=== PATIENT | male | born 1995 | race American Indian/Alaskan Native ===

== ENCOUNTER 2020-01-24 05:56 | Emergency (ER) | payer SELFPAY ==
[2020-01-24 06:35] VITALS: BP 138/78
--- NOTE | 2020-01-24 08:30 | Emergency Department Report ---
Chief Complaint: Extremity Problem,Nontraumatic Stated Complaint: FEET PAIN Time Seen by Provider: 01/24/20 08:17 - HPI History of Present Illness: Patient is a 24-year-old male presents emergency room with complaints of bilateral feet pain for the last couple of weeks. He states that he has been homeless for several months and has been constantly walking around on his feet. He denies any fall or injury. He denies any drainage from the feet. He states he has been walking outside in the rain. No past medical history. No allergies to medications. He denies any SI or HI. Vitals are stable On exam: There are calluses present to the plantar surface of the bilateral feet, there is a very mild amount of erythema between the webs of the toes, there is a small amount of scaling, no ulcerations, no drainage, no necrosis, no increased warmth, no edema, full range of motion of the bilateral lower extremities, neurovascularly intact Examination appears consistent with mild tinea pedis and calluses Symptoms likely related to overuse and moisture Patient given a new pair of socks to wear Discussed [id number] treatment with patient Discussed the importance of keeping the feet dry Patient was given a list of multiple community resources Patient given a list of shelters Discussed very strict return precautions with patient Medical screening examination performed and there is no threat to life or limb at this time - Exam Vital Signs: Vital Signs 01/24/20 06:29 Temperature 97.5 F L Pulse Rate 74 Respiratory 17 Rate Blood Pressure 138/78 O2 Sat by Pulse 100 Oximetry MSE screening note: Focused history and physical exam performed. ED Disposition for MSE Clinical Impression: Callus of foot Tinea pedis Qualifiers: Laterality: bilateral Qualified Code(s): B35.3 - Tinea pedis Disposition: Z-07 MED SCREENING EXAM-LEFT Is pt being admited?: No Does the pt Need Aspirin: No Condition: Stable Instructions: Athlete's Foot, [id number], Corns and Calluses Additional Instructions: Please use [id number] athlete's foot ointment and powder. Please keep feet dry. Follow-up with a primary care doctor. Return to emergency room immediately for any new or worsening symptoms. Referrals: ESTEFANI RODRIGUEZ MD [Staff Physician] - 2-3 Days [facility] [Provider Group] - 2-3 Days [facility], [LAB/CONTRACT] - 2-3 Days Time of Disposition: 08:30 Print Language: WELSH
== END 2020-01-24 08:48 | disposition left against medical advice (07) ==
LOC: ED 05:56
DX: M79.672 Pain in left foot (principal); M79.671 Pain in right foot; Z53.21 Procedure and treatment not carried out due to patient leaving prior to being seen by health care provider